=== PATIENT | female | born 1995 | race Caucasian/White ===

== ENCOUNTER 2017-01-14 08:04 | Emergency (ER) | payer OTHER ==
[~2017-01-14] VITALS: Ht 170.2 cm; Wt 152.3 kg
[2017-01-14 08:06] VITALS: BP 146/92; PULSE 88; RESP 16; O2SAT 97
[2017-01-14] MEDS ORDERED: METF500T4 PO (08:09)
--- NOTE | 2017-01-14 08:36 | ED.REPORT ---
HPI-Abd Pain F Under 40 Date of Service Jan 14, 2017 ED Provider: Doc,Ed MD The patient is a 21 year old female with history of ovarian cysts and polycystic ovary syndrome, who presents to the emergency department complaining of "sharp" RLQ abdominal pain that began 1 week ago. The pain has been constant and seems to wax and wane. Her symptoms began to worsen last night while she was at work. She has also experienced "dull" back pain, nausea, and vomiting. She denies fever, chills, diarrhea, constipation, dysuria, vaginal bleeding or vaginal discharge. She denies history of kidney stones. Nursing Notes Stated Complaint: LOWER ABDOMINAL PAIN Chief Complaint: Female Abdominal Pain Nursing Notes Reviewed: Yes Allergies: Coded Allergies: sumatriptan (Verified Allergy, Unknown, 01/14/17) Scheduled Metformin (Metformin) 500 Mg Tablet 500 MG PO BID Scheduled PRN Hydrocodone-Acetaminophen 5-325 mg (Hydrocodone-Acetaminophen 5-325 mg) 1 Each Tablet 1 TABLET PO Q4H PRN PRN For Pain Hydrocodone-Acetaminophen 5-325 mg (Hydrocodone-Acetaminophen 5-325 mg) 1 Each Tablet 1 TABLET PO Q4H PRN PRN For Pain Ibuprofen (Ibuprofen) 800 Mg Tablet 800 MG PO TID PRN PRN For Pain General Time Seen by MD: 08:36 Chief Complaint Abdominal pain Hx Obtained From: Patient Arrived By: Walk-in Sudden in Onset?: No Onset Occurred: 1 week ago Symptom Duration: Since onset Progression since Onset: Gradually worsening Location: : RLQ Quality: Painful, Sharp Severity: Current: Mild Severity: Maximum: Severe Recent Healthcare: No recent doctor visit, No recent hospitalization Similar Sx Previous: Yes Past Medical History Past Medical History Prior mental illness, not currently on medication Panic disorder, depression Ovarian cyst PCOS Past Surgical History Reports: Tonsillectomy Family History Review, not relevant Smoking History Former Smoker Social History Alcohol Use: "Social" Drug Use: Denies drug use Other Social History: , Local resident 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 Physical Exam Initial Vital Signs Vital Signs (First) Date Time Temp Pulse Resp B/P Pulse Ox O2 Delivery O2 Flow Rate FiO2 01/14/17 08:06 36.6 88 16 146/92 97 Room Air Initial VS: Reviewed Head / Eyes: Atraumatic, Normocephalic, PERRL ENT: Mucous membranes moist, Conjunctiva normal, No scleral icterus Neck: Supple, Non-tender, Full range of motion Lymphatic: No lymphadenopathy Extremities: Vascular intact, Neuro intact, No swelling, No tenderness Skin: Warm, Dry, No cyanosis Neurologic: Alert, Oriented, Nonfocal Psychiatric: Mood/affect normal, Behavior normal, Normal thought content General/Constitutional: Awake, Alert, No acute distress, Well appearing Respiratory / Chest: Atraumatic, Breath sounds NL, Breath sounds = bilat, No respiratory distress, No rales, No rhonchi, No wheezing Cardiovascular: Heart rate NL, Regular rhythm, Heart sounds NL, No gallop, No murmurs, No rubs, Peripheral circulation NL Abdomen: Soft, No guarding, No rebound, BS normoactive, No distention, No hernia, No palpable mass Tenderness/Guarding/Rebound: Positive: Tender RLQ... Back: Inspection NL, Non-tender, No midline vertebral tend, No CVA tenderness Female Genitourinary: Steel Plate Printer present, No bleeding, No discharge, No cervical motion tend Mild-moderate right adnexal tenderness. No left adnexal tenderness. Interpretation & Diagnostics Interpretation & Diagnostics: Urine : negative Urine dip: trace leukocytes, negative nitries, negative blood Pelvic US: No torsion. Lab Results Interpretation Result Diagram: 01/14/17 0904 01/14/17 0904 Test 01/14/17 08:30 01/14/17 09:04 Hold Urine Received (Received) White Blood Count 12.7th/mm3 (3.8-10.1) Red Blood Count 4.61mil/mm3 (3.90-5.20) Hemoglobin 13.1g/dL (12.0-15.6) Hematocrit 38.5% (35.0-46.0) Mean Corpuscular Volume 83.5fL (81-100) Mean Corpuscular Hemoglobin 28.4pg (27.0-35.0) Mean Corpuscular Hemoglobin Concent 34.0% (32.0-37.0) Red Cell Distribution Width 13.4% (12.3-15.4) Platelet Count 276bil/L (150-400) Neutrophils (%) (Auto) 64.2% (40-74) Lymphocytes (%) (Auto) 27.7% (14-46) Monocytes (%) (Auto) 5.9% (4-12) Eosinophils (%) (Auto) 1.8% (0-5) Basophils (%) (Auto) 0.2% (0-3) Sodium Level 137mEq/L (134-144) Potassium Level 4.0mEq/L (3.5-5.2) Chloride Level 101mEq/L (97-108) Carbon Dioxide Level 20mmol/L (18-29) Blood Urea Nitrogen 11mg/dL (6-20) Creatinine 0.81mg/dL (0.57-1.00) Estimat Glomerular Filtration Rate 128mL/min (>59) Glucose Level 105mg/dL (60-99) Calcium Level 9.3mg/dL (8.5-10.1) Magnesium Level 1.8mg/dL (1.6-2.6) Total Bilirubin 0.3mg/dL (0.0-1.2) Aspartate Amino Transf (AST/SGOT) 23U/L (0-50) Alanine Aminotransferase (ALT/SGPT) 25U/L (0-32) Alkaline Phosphatase 50U/L (25-150) Total Protein 7.4g/dL (6.4-8.4) Albumin 4.0g/dL (3.4-5.0) Lipase 21U/L (13-60) CT Abd / Pelvis Interpretation IMPRESSION: 1. Normal appendix. No bowel obstruction. Large meniscal to the cecum may represent focal constipation. 2. Enlarging pelvic fluid collections adjacent to the uterus probably represent either paraovarian cysts or ovarian cysts. It is uncertain whether these structures are source for the patient's pain given that the right paraovarian cyst has been present since at least 12/21/14. A pelvic ultrasound may be helpful for better characterization. Dictated by: Tez Perez M.D. on 01/14/2017 at 9:19 Interpretation / Wet Read by: Discussed w radiologist Re-Eval/Medical Decision Med Decision/Clinical Course Med Decision/Clinical Course: 21 -year-old female history of PCO S presenting with right lower quadrant pain 7-10 days worsening last 2 days. Reports this is similar to her PCO S flares. She is tender right lower quadrant and right adnexal. CT abdomen and pelvis shows no appendicitis with multiple right ovarian cyst. Ultrasound showed no evidence of ovarian torsion with good flow to both ovaries. Her white blood cell count is mildly elevated 12,000. Her pain resolved with morphine. Urine was negative for infection. Likely PCO S flare. Pain control. Return precautions given if any new or worsening abdominal pain or any other new or worsening symptoms. Source of Hx: Old records Re-Evaluation/Progress #1: Time of Eval: 11:05 Re-Evaluation/Progress Note: Completed pelvic exam and discussed plan for pelvic ultrasound. Re-Evaluation/Progress #2: Time of Eval: 12:43 Re-Evaluation/Progress Note: Rechecked the patient. Discussed results, diagnosis, and plan for discharge. All questions were addressed. Counseled Regarding: Diagnosis, Lab results, Need for follow-up, When/why to return to ED Discharge & Departure Primary Impression: Ovarian cyst Laterality: bilateral Qualified Code: N83.20 - Unspecified ovarian cysts Additional Impression: Abdominal pain Abdominal location: right lower quadrant Qualified Code: R10.31 - Right lower quadrant pain Disposition: Home Discharge Condition All VS Reviewed: Yes Condition: Stable Patient Instructions: Ovarian Cyst (ED) Additional Instructions: Thank you for entrusting us with your care today. Your workup today included labs, urinalysis, and abdominal CT. Your CT today does show evidence of an ovarian cyst. This may be the cause of your pain today. Your appendix is normal and there is no evidence of a bowel obstruction. Your ultrasound did not show any evidence of ovarian torsion. Use Motrin and Hackberry as needed for your pain. Followup with your regular doctor early next week for re-evaluation. Please return to the emergency department if you develop increased pain, uncontrollable vomiting, fever, or any other new or concerning symptoms. Referrals: Elizabeth Lynch (PCP) Hillaryibmariia Attestation Portions of this note were transcribed by Falguni Nolen. I, Dr. Martinez personally performed the history, physical exam and medical decision-making; I reviewed and confirmed the accuracy of the information in the transcribed note. Signed by: Bharat Fields, 01/14/2017 at 1300. copies to: Elizabeth Lynch Ben M MD Jan 14, 2017 08:36 Callum,Falguni Epperson Jan 14, 2017 08:41
[2017-01-14] MEDS ORDERED: 0.9% Sodium Chloride 1,000 ML IV ONE (08:42)
[2017-01-14] MEDS ORDERED: Ondansetron 2 mg/mL 2 mL Inj IVPUSH PRN (08:45)
[2017-01-14 09:13] LABS: BASOPHILS % (AUTO) 0.2 % (0-3); EOSINOPHILS % (AUTO) 1.8 % (0-5); MONOCYTES % (AUTO) 5.9 % (4-12); Mean Corpuscular Hemoglobin 28.4 pg (27.0-35.0); Mean Corpuscular Volume 83.5 fL (81-100); NEUTROPHILS % (AUTO) 64.2 % (40-74); Platelet Count 276 bil/L (150-400)
[2017-01-14 09:41] LABS: Magnesium 1.8 mg/dL (1.6-2.6)
--- NOTE | 2017-01-14 10:28 | DRSVH ---
PROCEDURE: CT ABDOMEN AND PELVIS WITH CONTRAST ([id number]) INDICATIONS: RLQ pain TECHNIQUE: After the administration of intravenous contrast, 5 mm thick sections acquired from the diaphragm to the symphysis. 5 mm coronal and sagittal reformats were acquired. For radiation dose reduction, the following was used: automated exposure control, adjustment of mA and/or kV according to patient siz e. COMPARISON: [facility], CT, CT ABD PELVIS W CON, 05/17/2015, 15:33. [facility] al, CT, ABD/PELVIS W/CON (PNL), 12/21/2014, 14:23. FINDINGS: Image quality: Excellent. ABDOMEN: Lung bases: Lung bases are clear. Heart size is normal. Solid organs: The liver is normal in size, but demonstrates subtle decreased density when compared to the spleen, which may represent hepatic steatosis. The spleen is normal in size. The adrenals and pancreas are unremarkable. The kidneys are within normal limits. There is no hydronephrosis or alberto l calculus. Peritoneum and bowel: The stomach, duodenum, and remainder of the small bowel loops are nondilated. There is no bowel obstruction. Moderate residual stool is seen within the colon, particularly within the region of the cecum. The appendix is well-visualized and normal in size without surrounding inf lammation. There is no free fluid, loculated fluid collection, or free air. Nodes and vessels: No retroperitoneal or mesenteric adenopathy by size criteria. Aorta and inferior vena cava are normal in size. Bones: Degenerative changes of the thoracolumbar spine are more prominent at the thoracolumbar juncti on. No acute fractures or suspicious osseous lesions are evident. PELVIS: Genitourinary: Bladder wall thickness is normal. The uterus is not enlarged. On the posterior jose in of the uterus within the right adnexal region, positioned between the uterus and the rectum, there is a large fluid collection measuring 5.1 x 6.4 cm (image 79, series 2), previously measuring 5.5 x 3.4 cm. There is a new left paraovarian fluid collection identified measuring 3.2 x 1.9 cm (image 79 , series 2). Other pelvic soft tissues: No inguinal hernias or adenopathy. Small inguinal lymph nodes are noted. No free fluid or loculated fluid collection is evident. Bones: No suspicious bony lesions. No significant degenerative changes of the pelvic joints are mickey dent. IMPRESSION: 1. Normal appendix. No bowel obstruction. Large meniscal to the cecum may represent focal constipa tion. 2. Enlarging pelvic fluid collections adjacent to the uterus probably represent either paraovarian c ysts or ovarian cysts. It is uncertain whether these structures are source for the patient's pain [place] that the right paraovarian cyst has been present since at least 12/21/14. A pelvic ultrasound may be helpful for better characterization. Dictated by: Tez Perez M.D. on 01/14/2017 at 9:19 Approved by: Tez Perez M.D. on 01/14/2017 at 9:26
[2017-01-14] MEDS ORDERED: HYDR-4003 PO ×2 (12:46→13:19)
[2017-01-14] MEDS ORDERED: IBUP800T28 PO (12:46)
[2017-01-14 13:09] VITALS: BP 122/66; PULSE 87; RESP 15; O2SAT 95
--- NOTE | 2017-01-14 13:39 | DRSVH ---
PROCEDURE: US PELVIC SONOGRAM WITH TRANSVAG AND DOPPLER, LIMITED INDICATIONS: RIGHT ADNEXAL TENDERNESS, RULE OUT TORSION, HISTORY OF CYSTS/PCOS. TECHNIQUE: Real-time scanning was performed of the pelvic organs, with image documentation. Additio nal endovaginal scanning was necessary due to incomplete visualization of the adnexal and endometrial structures by transabdominal scanning. COMPARISON: [facility], CT, CT ABD PELVIS W CON, 01/14/2017, 10:01. FINDINGS: (Orthogonal measurements) Uterus size: 8.20 cm, 3.45 cm, 6.06 cm Endometrium thickness: 6 mm Right ovary size: 6.83 cm, 5.00 cm, 6.47 cm Left ovary size: 4.38 cm, 2.74 cm, 3.60 cm Transabdominal scanning: Limited scanning through the kidneys shows no hydronephrosis. No pathologi c free abdominal or pelvic fluid. Endovaginal scanning: Uterus: Uterus is normal in size and appearance. Endometrium is within normal physiologic limits. Ovaries: Large simple biadnexal likely ovarian cyst present measuring 5.9 x 4.6 x 6.5 cm on the right and 4.1 x 2.9 x 2.3 cm on the left. Doppler assessment demonstrates bilateral peripheral flow. IMPRESSION: 1. Bilateral, presumed large simple ovarian cysts. Given the size, recommend gynecologic consultatio n. Dictated by: Javier HAMILTON Interpreted: Minnie Duke MD on 01/14/2017 at 13:03 Transcribed by: JILL on 01/14/2017 at 16:39 Approved by: Minnie Duke MD, PhD on 01/14/2017 at 16:27
[2017-03-03] MEDS ORDERED: MULT-1018 PO (15:36)
[2017-03-03] MEDS ORDERED: OCP (15:36)
[2017-03-03] MEDS ORDERED: HYDR-4003 PO (15:36)
[2017-03-03] MEDS ORDERED: METF500T4 PO (15:36)
[2017-03-03] MEDS ORDERED: TRAM50TA2 PO (15:36)
== END 2017-01-14 12:46 | disposition home or self-care (01) ==
LOC: SED 08:04
DX: N83.201 Unspecified ovarian cyst, right side (principal); N83.202 Unspecified ovarian cyst, left side; Z87.42 Personal history of other diseases of the female genital tract; Z87.891 Personal history of nicotine dependence; Z79.84 Long term (current) use of oral hypoglycemic drugs; Z88.8 Allergy status to other drugs, medicaments and biological substances
CPT/HCPCS: 36415; 74177; 76830; 76856; 80053; 81025; 83690; 83735; 85025; 93976; 96361; 96374; 96375; 99285; J2270; J2405; J7030; Q9967

== ENCOUNTER 2017-01-28 07:52 | Emergency (ER) | payer OTHER ==
[~2017-01-28] VITALS: Ht 167.6 cm; Wt 152.3 kg
[~2017-01-28 07:52] MED LIST: HYDR-4003 PO; IBUP800T28 PO; METF500T4 PO
[2017-01-28 07:58] VITALS: BP 137/104; PULSE 87; RESP 10; O2SAT 96
[2017-01-28] MEDS ORDERED: 0.9% Sodium Chloride 1,000 ML IV ONE (08:14)
[2017-01-28 08:41] LABS: BASOPHILS % (AUTO) 0.6 % (0-3); EOSINOPHILS % (AUTO) 2.5 % (0-5); Mean Corpuscular Hemoglobin 28.1 pg (27.0-35.0); Mean Corpuscular Volume 83.8 fL (81-100); NEUTROPHILS % (AUTO) 52.1 % (40-74); Platelet Count 311 bil/L (150-400)
[2017-01-28] MEDS: Ondansetron 2 mg/mL 2 mL Inj IVPUSH PRN ×2 (08:44→10:10)
[2017-01-28 09:11] LABS: COLOR,URINE YELLOW (YELLOW); OCCULT BLOOD,URINE NEGATIVE (NEGATIVE); PH,URINE 5.5 (5.0-8.0); UROBILINOGEN,URINE NORMAL (NORMAL)
[2017-01-28 09:12] LABS: APPEARANCE,URINE HAZY (CLEAR,HAZY)
[2017-01-28 09:15] LABS: Magnesium 2.1 mg/dL (1.6-2.6)
--- NOTE | 2017-01-28 09:59 | ED.REPORT ---
HPI-Abd Pain F Under 40 Date of Service Jan 28, 2017 ED Provider: Melvin Martinez MD Patient is a 22 year old female with a history of ovarian cysts and PCOS who presents to the ED complaining of three weeks of intermittent abdominal pain that worsened markedly at 0600 this morning. She describes the pain as sharp and localizes pain in the RLQ. Patient denies fever and vomiting. She was seen here in the ER recently for similar and followed up with PCP who referred her to an OBGYN, who instructed to return to the ER if symptoms became suddenly worse. Nursing Notes Stated Complaint: ABDOMINAL PAIN Chief Complaint: Female Abdominal Pain Nursing Notes Reviewed: Yes Allergies: Coded Allergies: sumatriptan (Verified Allergy, Unknown, 01/14/17) Scheduled Metformin (Metformin) 500 Mg Tablet 500 MG PO BID Scheduled PRN Hydrocodone-Acetaminophen 5-325 mg (Hydrocodone-Acetaminophen 5-325 mg) 1 Each Tablet 1 TABLET PO Q4H PRN PRN For Pain Hydrocodone-Acetaminophen 5-325 mg (Hydrocodone-Acetaminophen 5-325 mg) 1 Each Tablet 1 TABLET PO Q4H PRN PRN For Pain Ibuprofen (Ibuprofen) 800 Mg Tablet 800 MG PO TID PRN PRN For Pain General Time Seen by MD: 08:13 Chief Complaint Abdominal pain Hx Obtained From: Patient Arrived By: Walk-in Sudden in Onset?: No Onset Occurred: More than a week ago... 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 Physical Exam Initial Vital Signs Vital Signs (First) Date Time Temp Pulse Resp B/P Pulse Ox O2 Delivery O2 Flow Rate FiO2 01/28/17 07:58 36.6 87 10 137/104 96 Room Air Initial VS: Reviewed General/Constitutional: Awake, Alert Respiratory / Chest: Atraumatic, Breath sounds NL, Breath sounds = bilat, No respiratory distress Cardiovascular: Heart rate NL, Regular rhythm, Heart sounds NL, No murmurs Tenderness/Guarding/Rebound: Positive: Tender RLQ... (Mild) Back: Atraumatic Head / Eyes: Normocephalic, PERRL, EOMI ENT: Airway patent, Mucous membranes moist Skin: Atraumatic, Color NL, No rash, Warm, Dry Neurologic: Oriented X3, Speech NL, No motor deficits, No sensory deficits Neck: Supple Psychiatric: Affect NL, Mood NL Interpretation & Diagnostics PELVIC US Initial read by welding technician: No sign of ovarian torsion or appendicitis. Ovarian cysts. Lab Results Interpretation Result Diagram: 01/28/17 0837 01/28/17 0837 Test 01/28/17 08:37 White Blood Count 10.8th/mm3 (3.8-10.1) Red Blood Count 4.99mil/mm3 (3.90-5.20) Hemoglobin 14.0g/dL (12.0-15.6) Hematocrit 41.8% (35.0-46.0) Mean Corpuscular Volume 83.8fL (81-100) Mean Corpuscular Hemoglobin 28.1pg (27.0-35.0) Mean Corpuscular Hemoglobin Concent 33.5% (32.0-37.0) Red Cell Distribution Width 13.5% (12.3-15.4) Platelet Count 311bil/L (150-400) Neutrophils (%) (Auto) 52.1% (40-74) Lymphocytes (%) (Auto) 35.6% (14-46) Monocytes (%) (Auto) 9.0% (4-12) Eosinophils (%) (Auto) 2.5% (0-5) Basophils (%) (Auto) 0.6% (0-3) Urine Color Yellow (YELLOW) Urine Appearance Hazy (CLEAR,HAZY) Urine pH 5.5 (5.0-8.0) Urine Specific [place] 1.025 (1.003-1.035) Urine Protein Negativemg/dL (NEG,TRACE) Urine Glucose (UA) Negativemg/dL (NEGATIVE) Urine Ketones Negativemg/dL (NEGATIVE) Urine Occult Blood Negative (NEGATIVE) Urine Nitrite Negative (NEGATIVE) Urine Bilirubin Negative (NEGATIVE) Urine Urobilinogen Normalmg/dL (NORMAL) Urine Leukocyte Esterase Negative (NEGATIVE) Urine RBC 0-2/hpf (0-2) Urine WBC 0-5/hpf (0-5) Urine Epithelial Cells Moderate/hpf (NONE-MOD) Urine Crystals None seen (NONE SEEN) Urine Bacteria Few/hpf (NONE-FEW) Urine Hyaline Casts None/lpf (NONE) Urine Granular Casts None seen (NONE SEEN) Urine Waxy Casts None seen (NONE SEEN) Urine Red Blood Cell Casts None seen (NONE SEEN) Urine White Blood Cell Casts None seen (NONE SEEN) Urine Mucus None seen (None Seen) Urine Trichomonas None seen (NONE SEEN) Urine Yeast None (NONE SEEN) Urinalysis Comment None Urine Culture Reflexed Not indicated Sodium Level 138mEq/L (134-144) Potassium Level 4.3mEq/L (3.5-5.2) Chloride Level 102mEq/L (97-108) Carbon Dioxide Level 21mmol/L (18-29) Blood Urea Nitrogen 23mg/dL (6-20) Creatinine 0.78mg/dL (0.57-1.00) Estimat Glomerular Filtration Rate 132mL/min (>59) Glucose Level 103mg/dL (60-99) Calcium Level 10.0mg/dL (8.5-10.1) Magnesium Level 2.1mg/dL (1.6-2.6) Total Bilirubin 0.2mg/dL (0.0-1.2) Aspartate Amino Transf (AST/SGOT) 25U/L (0-50) Alanine Aminotransferase (ALT/SGPT) 25U/L (0-32) Alkaline Phosphatase 52U/L (25-150) Total Protein 7.9g/dL (6.4-8.4) Albumin 4.4g/dL (3.4-5.0) Lipase 22U/L (13-60) Re-Eval/Medical Decision Med Decision/Clinical Course Med Decision/Clinical Course: 22-year-old female history of morbid obesity, PCO S presenting with right lower quadrant pain sudden onset this morning. She has had constant right lower quadrant pain for the past 3 weeks. She was told to come in immediately if she develops any worsening of the pain. She reports this happened this morning. No fevers, nausea vomiting, other associated symptoms pain just mild right lower quadrant tenderness. She reports this feels like her PCOS flares. Pelvic ultrasound showed right adnexal cyst with good flow no evidence of torsion. No evidence of appendicitis and appendix poorly visualized. Discussed with patient she does not want any CT scan to rule out appendicitis. She will return if her pain worsens. Her pain is now significantly improved. Source of Hx: Old records Re-Evaluation/Progress : Time of Eval: 11:41 Patient Status: Condition improved Re-Evaluation/Progress Note: Rechecked patient. Discussed ultrasound results, diagnosis, plan for treatment and discharge. The patient understands and agrees to the plan for discharge. All questions were addressed. Counseled Regarding: Diagnosis, Lab results, Need for follow-up, When/why to return to ED Discharge & Departure Primary Impression: Polycystic ovarian syndrome Additional Impression: Right lower quadrant abdominal pain Disposition: Home Discharge Condition All VS Reviewed: Yes Condition: Stable Patient Instructions: Polycystic Ovarian Syndrome (ED) Additional Instructions: Your ultrasound did not reveal any torsion or signs of appendicitis. Continue taking Tramadol as prescribed for your pain. You opted for no CT scan to rule out appendicitis. Please return to the emergency department if you develop any new or worsening symptoms including worsening abdominal pain, fevers, nausea/ vomiting, other new/worsening symptoms. Referrals: Eli Bowles (PCP) Bharat Attestation Portions of this note were transcribed by Magdalene Duran and Ernst Jean. I, Dr. Martinez personally performed the history, physical exam and medical decision-making; I reviewed and confirmed the accuracy of the information in the transcribed note. Signed by: Bharat Lemon, and 12:00 copies to: Eli Bowles Ben M MD Jan 28, 2017 09:59 Adri Duran Jan 28, 2017 10:29 ERNST JEAN Jan 28, 2017 11:07
[2017-01-28 12:07] VITALS: BP 132/61; PULSE 85; RESP 15
--- NOTE | 2017-01-28 13:29 | DRSVH ---
PROCEDURE: US PELVIC SONOGRAM + TRANSVAGINAL SONOGRAM INDICATIONS: RLQ pain r/o torsion and appendicitis TECHNIQUE: Real-time scanning was performed of the pelvic organs, with image documentation. Additional endovagi nal scanning was necessary due to incomplete visualization of the adnexal and endometrial structures by transabdominal scanning. COMPARISON: [facility], CT, CT [facility] CON[facility]DOP LTD, 01/14/2017, 11:49. FINDINGS: (orthogonal measurements) Uterus size: 7.28 cm, 4.13 cm, 3.30 cm Endometrium thickness: 4.60 mm Right ovary size: 2.67 cm, 4.60 cm Left ovary size: 4.76 cm, 6.03 cm Transabdominal scanning: Limited scanning through the kidneys shows no hydronephrosis. No pathologi c free abdominal or pelvic fluid. Endovaginal scanning: Uterus: Uterus is normal in size and appearance. Endometrium is within normal physiologic limits. Ovaries: Simple cysts involve the ovaries bilaterally measuring 3.3 x 1.9 x 2.6 cm on the right and 5 .3 x 4.0 x 2.3 cm on the left. Doppler assessment of the ovaries demonstrates normal arterial and ve nous flow bilaterally. Trace free fluid adjacent to the left ovary. The appendix is not visualized. No secondary sonographic signs to indicate appendicitis. IMPRESSION: 1. Bilateral simple ovarian cysts, each of which have decreased in size from prior examination. Cont inued sonographic surveillance to resolution recommended. 2. The appendix is not visualized and cannot be evaluated. If indicated CT could be performed. Dictated by: Javier Osuna [facility] Interpreted: Minnie Duke MD on 01/28/2017 at 13:27 Transcribed by: JEAN CLAUDE on 01/28/2017 at 13:29 Approved by: Minnie Duke MD, PhD on 01/28/2017 at 16:43
[2017-03-03] MEDS ORDERED: METF500T4 PO (15:36)
[2017-03-03] MEDS ORDERED: HYDR-4003 PO (15:36)
[2017-03-03] MEDS ORDERED: MULT-1018 PO (15:36)
[2017-03-03] MEDS ORDERED: OCP (15:36)
[2017-03-03] MEDS ORDERED: TRAM50TA2 PO (15:36)
== END 2017-01-28 11:49 | disposition home or self-care (01) ==
LOC: SED 08:14
DX: E28.2 Polycystic ovarian syndrome (principal); R10.31 Right lower quadrant pain; Z79.84 Long term (current) use of oral hypoglycemic drugs; Z87.891 Personal history of nicotine dependence; Z88.8 Allergy status to other drugs, medicaments and biological substances
CPT/HCPCS: 76830; 76856; 80053; 81000; 81025; 83690; 83735; 85025; 96361; 96374; 96375; 96376; 99285; J1885; J2270; J2405; J7030

== ENCOUNTER 2017-02-08 19:27 | Emergency (ER) | payer OTHER ==
[~2017-02-08] VITALS: Ht 172.7 cm; Wt 152.3 kg
[2017-02-08 19:33] VITALS: BP 146/90; PULSE 114; RESP 28; O2SAT 97
[2017-02-08 19:59] LABS: BASOPHILS % (AUTO) 0.4 % (0-3); EOSINOPHILS % (AUTO) 1.8 % (0-5); MONOCYTES % (AUTO) 7.9 % (4-12); Mean Corpuscular Hemoglobin 28.1 pg (27.0-35.0); Mean Corpuscular Volume 83.1 fL (81-100); NEUTROPHILS % (AUTO) 55.7 % (40-74); Platelet Count 330 bil/L (150-400)
[2017-02-08 20:20] LABS: Magnesium 1.8 mg/dL (1.6-2.6)
--- NOTE | 2017-02-08 21:22 | ED.REPORT ---
HPI- Female Date of Service Feb 08, 2017 ED Provider: Lesa Lowry MD 22 y/o female with a hx of PCOS and known right ovarian cyst presents to the ED complaining of sharp RLQ abdominal pain, onset 45 mins ago. The pt reports her pain was 10/10 in severity earlier today but is currently 8/10. She also reports nausea but denies weakness, dizziness, SOB, vomiting, diarrhea and dysuria. She saw he COSTUMED CHARACTER today who is trying to set up a surgery for her, as she has a known ovarian cyst measuring 6cm (down from 8cm when measured in December ) Nursing Notes Stated Complaint: SEVERE ABDOMINAL PAIN Chief Complaint: Female Abdominal Pain Nursing Notes Reviewed: Yes Allergies: Coded Allergies: sumatriptan (Verified Allergy, Unknown, 02/08/17) Scheduled Metformin (Metformin) 500 Mg Tablet 500 MG PO BID Scheduled PRN Hydrocodone-Acetaminophen 5-325 mg (Hydrocodone-Acetaminophen 5-325 mg) 1 Each Tablet 1 TABLET PO Q4H PRN PRN For Pain Hydrocodone-Acetaminophen 5-325 mg (Hydrocodone-Acetaminophen 5-325 mg) 1 Each Tablet 1 TABLET PO Q4H PRN PRN For Pain Hydrocodone-Acetaminophen 5-325 mg (Hydrocodone-Acetaminophen 5-325 mg) 1 Each Tablet 1 TABLET PO Q4H PRN PRN For Pain Ibuprofen (Ibuprofen) 800 Mg Tablet 800 MG PO TID PRN PRN For Pain General Time Seen by MD: 21:21 Chief Complaint Abdominal pain... Hx Obtained From: Patient Arrived By: Walk-in Sudden in Onset?: Yes Onset Occurred: 46 - 59 minutes ago Symptom Duration: Since onset Location: : Abdomen lower Quality: Painful Radiation: Does not radiate Severity: Current: Moderate Severity: Maximum: Moderate Recent Healthcare: Recent doctor visit Similar Sx Previous: Yes Past Medical History Past Medical History Prior mental illness, not currently on medication Panic disorder, depression Ovarian cyst PCOS Past Surgical History Reports: Tonsillectomy Family History Review, not relevant Smoking History Former Smoker Social History Alcohol Use: "Social" Drug Use: Denies drug use Other Social History: , Local 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 Respiratory: Denies: Shortness of breath Physical Exam Initial Vital Signs Vital Signs (First) Date Time Temp Pulse Resp B/P Pulse Ox O2 Delivery O2 Flow Rate FiO2 02/08/17 19:33 36.3 114 28 146/90 97 Room Air Initial VS: Reviewed, Vital signs abnormal Head / Eyes: Atraumatic, Normocephalic, PERRL ENT: Mucous membranes moist, Conjunctiva normal, No scleral icterus Neck: Supple, Non-tender, Full range of motion Respiratory: Breath sounds normal, Clear to auscultation, No respiratory distress Extremities: Vascular intact, Neuro intact, No swelling, No tenderness Skin: Warm, Dry, No cyanosis Neurologic: Alert, Oriented, Nonfocal Psychiatric: Mood/affect normal, Behavior normal, Normal thought content Female Genitourinary: Exam deferred General/Constitutional: Awake, Alert, Cooperative Cardiovascular: Regular rhythm, Heart sounds NL Heart Rate / Rhythm: Positive: Tachycardia Abdomen: Atraumatic, Soft General lower abdominal pain, worse at right lower quadrant. Interpretation & Diagnostics Lab Results Interpretation Result Diagram: 02/08/17195302/08/171953 Test 02/08/17 19:54 02/08/17 21:20 White Blood Count 13.7th/mm3 (3.8-10.1) Red Blood Count 4.91mil/mm3 (3.90-5.20) Hemoglobin 13.8g/dL (12.0-15.6) Hematocrit 40.8% (35.0-46.0) Mean Corpuscular Volume 83.1fL (81-100) Mean Corpuscular Hemoglobin 28.1pg (27.0-35.0) Mean Corpuscular Hemoglobin Concent 33.8% (32.0-37.0) Red Cell Distribution Width 13.3% (12.3-15.4) Platelet Count 330bil/L (150-400) Neutrophils (%) (Auto) 55.7% (40-74) Lymphocytes (%) (Auto) 34.1% (14-46) Monocytes (%) (Auto) 7.9% (4-12) Eosinophils (%) (Auto) 1.8% (0-5) Basophils (%) (Auto) 0.4% (0-3) Sodium Level 137mEq/L (134-144) Potassium Level 3.6mEq/L (3.5-5.2) Chloride Level 101mEq/L (97-108) Carbon Dioxide Level 19mmol/L (18-29) Blood Urea Nitrogen 14mg/dL (6-20) Creatinine 0.78mg/dL (0.57-1.00) Estimat Glomerular Filtration Rate 132mL/min (>59) Glucose Level 137mg/dL (60-99) Calcium Level 9.9mg/dL (8.5-10.1) Magnesium Level 1.8mg/dL (1.6-2.6) Total Bilirubin 0.2mg/dL (0.0-1.2) Aspartate Amino Transf (AST/SGOT) 26U/L (0-50) Alanine Aminotransferase (ALT/SGPT) 29U/L (0-32) Alkaline Phosphatase 56U/L (25-150) Total Protein 7.4g/dL (6.4-8.4) Albumin 4.3g/dL (3.4-5.0) Lipase 28U/L (13-60) Hold Rausch Top Tube Received (Received) Urine Color Yellow (YELLOW) Urine Appearance Clear (CLEAR,HAZY) Urine pH 6.5 (5.0-8.0) Urine Specific [place] 1.020 (1.003-1.035) Urine Protein Negativemg/dL (NEG,TRACE) Urine Glucose (UA) Negativemg/dL (NEGATIVE) Urine Ketones Negativemg/dL (NEGATIVE) Urine Occult Blood Negative (NEGATIVE) Urine Nitrite Negative (NEGATIVE) Urine Bilirubin Negative (NEGATIVE) Urine Urobilinogen 1.0mg/dL (NORMAL) Urine Leukocyte Esterase Negative (NEGATIVE) Urine RBC 0-2/hpf (0-2) Urine WBC 0-5/hpf (0-5) Urine Epithelial Cells Few/hpf (NONE-MOD) Urine Crystals None seen (NONE SEEN) Urine Bacteria Few/hpf (NONE-FEW) Urine Hyaline Casts None/lpf (NONE) Urine Granular Casts None seen (NONE SEEN) Urine Waxy Casts None seen (NONE SEEN) Urine Red Blood Cell Casts None seen (NONE SEEN) Urine White Blood Cell Casts None seen (NONE SEEN) Urine Mucus None seen (None Seen) Urine Trichomonas None seen (NONE SEEN) Urine Yeast None (NONE SEEN) Urinalysis Comment None Urine Culture Reflexed Not indicated Re-Eval/Medical Decision Med Decision/Clinical Course The patient presents with a sudden increase in pain this known right ovarian cyst, proximally 6 cm. The patient is not visibly uncomfortable and her pain significantly improved while here. It is likely that her cyst ruptured, this does not seem consistent with ovarian torsion. On repeat exam the patient had continued pain to the right lower quadrant suprapubic area but her belly was soft. Additional differential diagnoses considered were appendicitis and ectopic . Source of Hx: Old records Re-Evaluation/Progress : Time of Eval: 22:32 Re-Evaluation/Progress Note: Patient understands and agrees with the plan to be discharged home. Discharge instructions and follow-up discussed. All questions were addressed. Return to the ED warnings given. Counseled Regarding: Diagnosis, Lab results, Need for follow-up, When/why to return to ED Discharge & Departure Impression: Primary Impression: Ovarian cyst Laterality: right Qualified Code: N83.201 - Unspecified ovarian cyst, right side Disposition: Home Discharge Condition All VS Reviewed: Yes Condition: Stable Patient Instructions: Ovarian Cyst (ED) Additional Instructions: Your pain is likely related to ruptured ovarian cyst. There is no torsion. A repeat ultrasound is required so make an appointment with your center sales and service associate. Return to the emergency department in cause of increased pain, fever or any new or worsening symptoms. Referrals: Eli Bowles (PCP) Scribe Attestation Portions of this note were transcribed by Andrea Jefferson and Pat Garner I, personally performed the history, physical exam and medical decision-making;I reviewed and confirmed the accuracy of the information in the transcribed note. Signed by Andrea Jefferson and Bharat Nur. 02/09/17 0238 copies to: Eli Bowles Jena M MD Feb 08, 2017 21:22 Andrea Jefferson Feb 08, 2017 21:28 Pat Garner Feb 09, 2017 02:38
[2017-02-08] MEDS ORDERED: HYDROmorphone 0.5 mg/0.5 mL iSecure Syringe IVPUSH PRN (21:30)
[2017-02-08] MEDS ORDERED: 0.9% Sodium Chloride 1,000 ML IV ONE (21:30)
[2017-02-08 21:42] LABS: APPEARANCE,URINE CLEAR (CLEAR,HAZY); COLOR,URINE YELLOW (YELLOW); OCCULT BLOOD,URINE NEGATIVE (NEGATIVE); PH,URINE 6.5 (5.0-8.0)
[2017-02-08 22:21] VITALS: BP 140/95; PULSE 78; RESP 20; O2SAT 99
[2017-02-08] MEDS ORDERED: HYDR-4003 PO (22:55)
[2017-02-08 23:06] VITALS: BP 133/92; PULSE 71; RESP 16; O2SAT 99
[2017-03-03] MEDS ORDERED: MULT-1018 PO (15:36)
[2017-03-03] MEDS ORDERED: METF500T4 PO (15:36)
[2017-03-03] MEDS ORDERED: HYDR-4003 PO (15:36)
[2017-03-03] MEDS ORDERED: TRAM50TA2 PO (15:36)
[2017-03-03] MEDS ORDERED: OCP (15:36)
== END 2017-02-08 23:07 | disposition home or self-care (01) ==
LOC: SED 19:27
DX: N83.201 Unspecified ovarian cyst, right side (principal); Z87.891 Personal history of nicotine dependence; Z79.84 Long term (current) use of oral hypoglycemic drugs; Z88.8 Allergy status to other drugs, medicaments and biological substances
CPT/HCPCS: 36415; 80053; 81000; 81025; 83690; 83735; 85025; 96361; 96374; 99284; J1170; J7030

== ENCOUNTER 2017-03-09 08:53 | Day surgery (SDC) | payer OTHER ==
[~2017-03-09] VITALS: Ht 167.6 cm; Wt 151.4 kg
[2017-03-09] VITALS (9 sets, daily range): BP systolic 114–137; BP diastolic 61–85; PULSE 90–107; RESP 13–18; O2SAT 93–100
[~2017-03-09 08:53] MED LIST changes: -IBUP800T28 PO; +LORazepam 1 mg Tablet PO PRN; +MULT-1018 PO; +OCP; +TRAM50TA2 PO
[2017-03-09] MEDS ORDERED: Glycopyrrolate 0.2 MG/ML 1mL Inj ONE (08:54)
[2017-03-09] MEDS ORDERED: Propofol 10,000 mCg/mL 20 mL Inj ONE (08:54)
[2017-03-09] MEDS ORDERED: Neostigmine 1 mg/mL 10 mL Inj ONE (08:54)
[2017-03-09] MEDS ORDERED: Ondansetron 2 mg/mL 2 mL Inj ONE (08:54)
[2017-03-09] MEDS ORDERED: fentaNYL-PF 50 mCg/mL 2 mL Inj ONE (08:54)
[2017-03-09] MEDS ORDERED: Succinylcholine Chloride 20 mg/mL 5 mL Inj ONE (08:54)
[2017-03-09] MEDS ORDERED: Dexamethasone 4 mg/mL Inj ONE (08:54)
[2017-03-09] MEDS ORDERED: Remifentanil 1 mg/3 mL Inj ONE (08:54)
[2017-03-09] MEDS ORDERED: Rocuronium 10 mg/mL 5 mL Inj ONE (08:54)
[2017-03-09] MEDS ORDERED: EPHEDrine/NS 5 mg/mL 5 mL Syringe ONE (08:54)
[2017-03-09] MEDS: Lactated Ringer's 1,000 ML IV SCH ×2 (08:56→11:45)
[2017-03-09] MEDS ORDERED: LEVO1TAB8 PO (09:10)
--- NOTE | 2017-03-09 10:03 | PCM.HPANE ---
Patient Data Surgeon Admitting Provider: Attending Provider:Lucian Barrera MD Primary Care Physician:Eli Bowles Other Provider:Sanjay Ndiaye Anesthesia Reason for Visit Pelvic Pain Ht/WT & BMI Height (Feet): 5 Height (Inches): 6 Weight (Kilograms): 151.95 Body Mass Index 53.00 Allergies Coded Allergies: sumatriptan (Verified Allergy, Unknown, 02/08/17) Past Anesthesia History Anesthesia History: Denies:: Anesthesia Reactions Diabetes History Hx Diabetes?: No (on metformin for PCOS) Medications Hypertension Medication: No Home Meds Incl Beta Zakiya: No Reported Medications Levonorgestrel/Ethinyl Estradiol (Aviane)1 Each Tablet1 Tablet PO DAILY #1 PACK 03/09/17 Tramadol 50 Mg [id number] Mg PO Q3H PRN For Pain Ref 0 03/03/17 Multivitamin (Multi Vitamin Daily)1 Each Tablet1 Each PO DAILY 30 Days Ref 0 03/03/17 Hydrocodone-Acetaminophen 5-325 mg 1 Each Tablet1 Tablet PO Q4H PRN For Pain Ref 0 03/03/17 Metformin 500 Mg [id number] Mg PO BID Ref 0 03/03/17 Discontinued Reported Medications [Ocp] No Conflict Check1 Tab DAILY 03/03/17 Metformin 500 Mg [id number] Mg PO BID 01/14/17 Discontinued Scripts Hydrocodone-Acetaminophen 5-325 mg 1 Each Tablet1 Tablet PO Q4H PRN For Pain # 10 TABLET Prov:Lesa Lowry MD 02/08/17 Hydrocodone-Acetaminophen 5-325 mg 1 Each Tablet1 Tablet PO Q4H PRN For Pain # 10 TABLET Prov:Melvin Martinez MD 01/14/17 Hydrocodone-Acetaminophen 5-325 mg 1 Each Tablet1 Tablet PO Q4H PRN For Pain # 10 TABLET Prov:Melvin Martinez MD 01/14/17 Ibuprofen 800 Mg [id number] Mg PO TID PRN For Pain #30 TABLET Prov:Melvin Martinez MD 01/14/17 History History of ENT Problems?: No HEENT History: Denies:: Abnormal Airway Cataracts Difficult Intubation Dysphagia Glaucoma Hearing Problem Sinus Problem TMJ Denture Type: None Teeth Condition: Within Normal Limits Hx of Heart Problems?: No Cardiovascular History: Denies:: AICD Abdominal Aortic Aneurism Atrial Fibrillation Cardiac Surgery Chest Pain Congestive Heart Failure Coronary Artery Disease Edema Heart Murmur Hypertension Irregular Heartbeat Pacemaker Peripheral Vascular Rheumatic Fever Thrombophlebitis Valvular Heart Disease Hx of Respiratory Problem?: No Respiratory History: Denies:: Asthma COPD Chest Surgery Cough Dyspnea Emphysema Hemoptysis Oxygen Administration Pneumonia Pulmonary Embolism Tuberculosis Use of C-PAP Machine Use of Inhalers / NEBS Hx Neurologic Problems?: No Hx of GI Problems?: No Hx of Problems?: No Female Hx: Denies:: Currently Problems with Breasts? Hx Musculoskeletal Problems?: Yes Musculoskeletal History: Positive for:: Back Injury (hx of back pain) Hx of Psycho/Social Problems?: Yes Psycho Social History: Positive for:: Anxiety (panic attacks) Hx Depression Hx Surgeries?: Yes (tonsils) Hx Any Other Health Problems?: Yes Other History: Denies:: Cancer Hx Diabetes: No (on metformin for PCOS) Hx Alcohol Use: NoHx Substance Use: No Smoking Status: Former Smoker Have You Smoked inLast 12 mo: No Stop/Bang P-Blood Pressure: treated: No B- Body Mass Index > 35 kg/m2: Yes A- Age over 50: No N- Neck Large Circumference: Yes HARI Risk Assessment: High Risk, =/>3 Yes Risk Assessment Category Category 1A: Patient has history of documented sleep apnea, and HAS NOT received any narcotic, sedative or anesthesia administration during this stay. Category 1B: Patient has history of documented sleep apnea, and HAS received any narcotic , sedative or anesthesia administration during this stay Category 2: Patient has SUSPECTED Obstructive Sleep Apnea, and HAS received any narcotic , sedative or anesthesia administration during this stay. Category 3: Patient has SUSPECTED Obstructive Sleep Apnea and HAS NOT received narcotic, sedative or anesthesia administration during this stay. Category 4: Outpatient in Procedural Areas with known sleep apnea or who screen positive for High Risk via the STOP/BANG questionnaire. Exam Exam General Appearance: Alert, Oriented X3, Cooperative, No Acute Distress HEENT/AIRWAY: MP 2 Lungs: Clear to Auscultation, Normal Air Movement Heart: Exam Unremarkable, Regular Rate/Rhythm, No Murmurs/Rubs/Gallops Meds/Labs/Diagnostics Admission Meds Current Medications Lactated Ringer's (Lr) 1,000 ml @ 120 mls/hr Q8H20M IV Last administered on t 08:56; Start 03/09/17 at 05:00; Stop 03/09/17 at 13:19 Plan Impression Patient chart reviewed, patient interviewed and anesthestic plan with risks, benefits, and alternatives discussed, and informed consent obtained. NPO per Anesth. Guidelines: Yes ASA Physical Status: ASA3 Severe Disease Anesthetic Plan: GA Bene/Risks/Altern/Consents: Yes HP Complete Prior to Induction: Yes Bishop Brown MD March 09, 2017 09:37
[2017-03-09] MEDS ORDERED: Lactated Ringer's 500 ML IV PRN (11:46)
[2017-03-09] MEDS ORDERED: Lactated Ringer's 1,000 ML IV SCH (11:46)
[2017-03-09] MEDS ORDERED: Labetalol 5 mg/mL 4 mL Inj IV PRN (11:50)
[2017-03-09] MEDS ORDERED: Atropine 0.4 mg/mL Inj IVPUSH PRN (11:50)
[2017-03-09] MEDS ORDERED: MetoCLOpramide 5 mg/mL 2 mL Inj IVPUSH PRN (11:50)
[2017-03-09] MEDS ORDERED: HYDROmorphone 1 mg/mL Inj IVPUSH PRN ×2 (11:50→14:00)
[2017-03-09] MEDS ORDERED: Phenylephrine 10,000 mCg/mL Inj IVPUSH PRN (11:50)
[2017-03-09] MEDS ORDERED: Ondansetron 2 mg/mL 2 mL Inj IVPUSH PRN ×2 (11:50→14:00)
[2017-03-09] MEDS ORDERED: EPHEDrine Sulfate 50 mg/mL Inj IVPUSH PRN (11:50)
[2017-03-09] MEDS ORDERED: Bupivacaine-MPF 0.25%/EPI 30 mL Inj INFILTRATE ONE (12:36)
[2017-03-09] MEDS ORDERED: Lactated Ringer's 1,000 ML IV ONE (13:09)
[2017-03-09] MEDS: fentaNYL-PF 50 mCg/mL 2 mL Inj IVPUSH PRN ×2 (13:54→14:03)
[2017-03-09] MEDS ORDERED: diphenhydrAMINE 25 mg Capsule PO PRN (14:00)
--- NOTE | 2017-03-09 14:01 | PCM.ANEP1 ---
Post Anesthesia PACU Phase 1 Assessment Vital Signs Vital Signs Date Time Temp Pulse Resp B/P Pulse Ox O2 Delivery O2 Flow Rate FiO2 03/09/17 13:55 106 14 127/76 95 Room Air 03/09/17 13:46 36.3 105 17 126/65 99 Simple Mask 10 03/09/17 09:32 36.1 92 18 135/81 97 Room Air Anesthetic Administered: GA Level of Alertness: Awake, talking PEARSON's with Equal Strength: Yes Pain: No Nausea or Vomiting: No CV Function and Hydration: Yes Airway Device: Endotrachial Tube Oxygen Delivery: Simple Mask Lungs: Clear to Auscultation, Normal Air Movement PACU Phase 2 Assessment Complications: No Follow up Care: N/A Patient Instructions Provided: N/A Bishop Brown MD March 09, 2017 14:01
--- NOTE | 2017-03-09 14:03 | PCM.DIGYN ---
Surgical Discharge Instruction Dates of Hospitalization Date of Hospital Admission 03/09/2017 Providers Admitting Physician: Primary Care Physician: Eli Bowles Attending Physician: Lucian Barrera MD Diagnosis at Time of Discharge Diagnosis at time of discharge Right Ovarian/Paraovarian cyst Problems: Diet Discharge Diet: No restrictions Activity Discharge Activity-General: Try not to overdue, Be up and about, Balance rest and activity, No lifting >10 pounds for 4-6 weeks Dressing and Incisional Care Hygiene: May shower, Wash incision with soap & water Follow Up Plan Follow-up appointment: Weeks (2) Call your provider for: Fever, Shortness of breath, Wound redness, Increasing pain Additional Information You may expect some vaginal bleeding after surgery today. This should stop over the next 24 to 48 hours. Lucian Barrera MD March 09, 2017 14:03
[2017-03-09] MEDS ORDERED: Albuterol 2.5 mg/3 mL Inhalation Solution NEB ONE (14:05)
[2017-03-09] MEDS: HYDROcodone-APAP 5-325 mg Tablet PO PRN ×2 (14:42→15:10)
--- NOTE | 2017-03-09 15:15 | OP ---
[address] [address] OPERATIVE REPORT PATIENT: STONE VAZQUEZ : 1995 MR#: [id number] ADMIT: 03/09/2017 JOB ID: [id number] DATE OF SURGERY: 03/09/2017 PREOPERATIVE DIAGNOSIS(ES): 1. Chronic pelvic pain. 2. Ovarian cyst. 3. Morbid Obesity POSTOPERATIVE DIAGNOSIS(ES): 1. Chronic pelvic pain. 2. Ovarian cyst. PROCEDURE PERFORMED: Laparoscopic right ovarian cystectomy. SURGEON: Lucian Barrera MD. PRESS TENDER: MD Dr. Channing Metz was necessary for this procedure to help with exposure and retraction. ANESTHESIA: General. ESTIMATED BLOOD LOSS: 5 mL. COMPLICATIONS: None. PATHOLOGY SENT: Right ovarian cyst. FINDINGS AT TIME OF SURGERY: Normal appearing uterus. The left ovary and fallopian tubes were normal appearance. The right fallopian tube was also normal in appearance. However, there was a 2-3 cm paratubal/ovarian cyst attached to the fimbriated end of the fallopian tube and the right ovary. Survey of the remaining abdomen was very limited due to patient's body habitus and adipose tissue internally. She did not tolerate high intra-abdominal pressures or Trendelenburg initially. PROCEDURE: The patient was taken to the operative room, where her general anesthesia was obtained without difficulty. She was placed in a lithotomy position in the white stirrups, prepared and draped in normal sterile fashion. The Vargas catheter was placed and an acorn manipulator was inserted. The umbilicus was injected with 10 mL of 0.25% Marcaine with epinephrine. The umbilicus was grasped with two penetrating towel clips to help expose the base of the umbilicus. A Veress needle was inserted at the base of patient's umbilicus. Initially there were high pressures upon insufflation and so the Veress needle was removed. The second longer Veress needle was then used and inserted. Needle aspirate and water drop test were negative and confirmatory. There were low opening pressures. Pneumoperitoneum was obtained 12 mmHg with CO2 gas. The above noted findings were appreciated. At this point, a left and right lower quadrant port site were marked off, injected with 0.25% Marcaine with epinephrine. Two 5 mm blunt trocars were inserted directly into the patient's peritoneal cavity under direct visualization. The Thunderbeat cautery device was then used to excise the right paraovarian cyst. At the end of procedure, the cyst was ruptured in the cul-de-sac and contained just clear fluid. The cyst was then removed from the left lower quadrant along with the port. The pelvis fluid was then drained. Good hemostasis was assured. All port sites were removed from the patient's peritoneal cavity and the pneumoperitoneum was released. The skin incisions were reapproximated with 4-0 Monocryl in a subcuticular fashion and Dermabond applied. All lap, instrument, and needle counts correct x2 at the end of procedure and patient was taken to the recovery room awake and in good condition. YEIMI
--- NOTE | 2017-03-10 14:33 | PATH ---
SURGICAL PATHOLOGY Attending Physician:Lucian Barrera, CASE STATUS: Signed Out PATIENT NAME: STONE VAZQUEZ PID: [id number] : 1995 DATE COLLECTED:03/09/2017 00:00 SPECIMEN: Ovary, Cyst, Non-Neoplastic CLINICAL HISTORY: PELVIC PAIN, PARA OVARIAN CYST 1). RIGHT OVARIAN CYST FINAL DIAGNOSIS: 1.RIGHT OVARIAN CYST: TISSUE CONSISTENT WITH BENIGN SIMPLE SEROUS CYST. NEGATIVE FOR ATYPIA AND MALIGNANCY. ICD10 N83.2 GROSS DESCRIPTION: The specimen is received in one formalin filled container labeled with the patient's name, sublabeled "right ovarian cyst" and consists of a light cardenas semi-firm portion of tissue which measures 3.0 x 2.6 x 1.0 CM. 2 printing sales representative sections are submitted in one cassette. 03/10/2017 [facility] MICRO DESCRIPTION: See diagnosis. ICD-9 CODES: CPT CODES: 1: 49871 Electronically Signed Out Leopoldo Thomason MD [facility] [address], [place] [address] Technical component performed at [facility], [facility] [address], [place], [address]
== END 2017-03-09 23:59 | disposition home or self-care (01) ==
LOC: SAS 08:53
PROVIDERS: ATTEND Obstetrics & Gynecology
DX: N83.292 Other ovarian cyst, left side (principal); N83.291 Other ovarian cyst, right side; R10.2 Pelvic and perineal pain; G89.29 Other chronic pain; F41.8 Other specified anxiety disorders; E66.01 Morbid (severe) obesity due to excess calories; Z68.43 Body mass index [BMI] 50.0-59.9, adult; Z79.84 Long term (current) use of oral hypoglycemic drugs; Z87.891 Personal history of nicotine dependence
CPT/HCPCS: 58662; J0330; J1100; J2250; J2405; J2710; J2765; J3010; J7120; J7613

== ENCOUNTER 2017-05-13 07:59 | Emergency (ER) | payer OTHER ==
[~2017-05-13] VITALS: Ht 167.6 cm; Wt 155.4 kg
[~2017-05-13 07:59] MED LIST changes: +LEVO1TAB8 PO; -LORazepam 1 mg Tablet PO PRN; -OCP
[2017-05-13 08:13] VITALS: BP 134/92; PULSE 85; RESP 12; O2SAT 98
--- NOTE | 2017-05-13 08:22 | ED.REPORT ---
HPI-Extremity Problem Lower Date of Service May 13, 2017 ED Provider: Melvin Martinez MD Patient is a 22 year old female who presents to the ED with R ankle pain s/p twisting it 4 days ago. The injury occurred when she was walking in her backyard when she stepped on it wrong. Associated symptoms include problems walking and swelling. She denies numbness, weakness, tingling, or any other symptoms. She has injured this ankle previously but never broken it. Patient took [place] at 0500 for pain. Nursing Notes Stated Complaint: RIGHT ANKLE INJURY Chief Complaint: Extremity Trauma Nursing Notes Reviewed: Yes Allergies: Coded Allergies: sumatriptan (Verified Allergy, Unknown, 02/08/17) Scheduled Levonorgestrel/Ethinyl Estradiol (Aviane) 1 Each Tablet 1 TABLET PO DAILY Metformin (Metformin) 500 Mg Tablet 500 MG PO BID Multivitamin (Multi Vitamin Daily) 1 Each Tablet 1 EACH PO DAILY Scheduled PRN Hydrocodone-Acetaminophen 5-325 mg (Hydrocodone-Acetaminophen 5-325 mg) 1 Each Tablet 1 TABLET PO Q4H PRN PRN For Pain Ibuprofen (Ibuprofen) 800 Mg Tablet 800 MG PO TID PRN PRN For Pain Tramadol (Tramadol) 50 Mg Tablet 50 MG PO Q3H PRN PRN For Pain General Time Seen by MD: 08:20 Chief Complaint Ankle injury right Hx Obtained From: Patient Arrived By: Walk-in Onset Occurred: 4 days ago Symptom Duration: Since onset Immunizations: Unknown Past Medical History Past Medical History Prior mental illness, not currently on medication Panic disorder, depression Ovarian cyst PCOS Past Surgical History cystectomy Reports: Tonsillectomy Family History Review, not relevant Smoking History Former Smoker Social History Alcohol Use: "Social" Drug Use: Denies drug use Other Social History: , Local resident Occupation [employer] Ambulatory Status Independent Review of Systems Review of Systems Note: -tingling Musculoskeletal: Reports: Joint pain, Joint swelling Neurologic: Reports: Problem walking, Denies: Numbness, Weakness Complete sys rev & neg: except as marked. Physical Exam Initial Vital Signs Vital Signs (First) Date Time Temp Pulse Resp B/P Pulse Ox O2 Delivery O2 Flow Rate FiO2 05/13/17 08:13 37.2 85 12 134/92 98 Room Air Initial VS: Reviewed, Vital signs abnormal Head / Eyes: Atraumatic, Normocephalic Neck: Full range of motion Respiratory: Breath sounds normal, Clear to auscultation, No respiratory distress Cardiovascular: Regular rate & rhythm, Heart sounds normal, Intact distal pulses Skin: Warm, Dry Neurologic: Alert, Oriented, Nonfocal Psychiatric: Mood/affect normal, Behavior normal, Normal thought content Lower Extremity / Pelvis / MS: No deformity, Neurologic intact, Vascular intact Ankle / Foot: Inspection NL, No deformity, Neurologic intact, Vascular intact Diffuse swelling of R ankle No bony tenderness General/Constitutional: Awake, Alert, No acute distress Interpretation & Diagnostics X-Ray Interpretation Xray Interpretation: IMPRESSION: 1. No displaced fracture or dislocation. If clinical concern persists for occult fracture, recommend a repeat study in 7-10 days or further evaluation with cross-sectional imaging. Dictated by: Tristan Padilla M.D. on 05/13/2017 at 9:27 Approved by: Tristan Padilla M.D. on 05/13/2017 at 9:28 X-Ray Ordered: Ankle right Re-Eval/Medical Decision Med Decision/Clinical Course Right ankle sprain. No evidence of fracture. Patient was placed in an Kee wrap, postop shoe, crutches. Weightbearing as tolerated. Follow-up with primary doctor 1 week if pain persists. TOSHIA. Re-Evaluation/Progress : Time of Eval: 09:57 Re-Evaluation/Progress Note: Discussed imaging results and plan for discharge. Patient understands and agrees with plan. All questions addressed at this time. Counseled Regarding: Diagnosis, Need for follow-up, When/why to return to ED Discharge & Departure Impression: Primary Impression: Ankle sprain Encounter type: initial encounter Involved ligament of ankle: unspecified ligament Laterality: right Qualified Code: S93.401A - Sprain of unspecified ligament of right ankle, initial encounter Disposition: Home Discharge Condition All VS Reviewed: Yes Condition: Stable Patient Instructions: Ankle Sprain (ED) Additional Instructions: Thank you for entrusting us with your care. You do not have a fracture. Ice the injury for 20 minutes at a time, 3 times a day. You may bear weight as tolerated. Take Ibuprofen as needed for pain. Follow up with your primary doctor if the pain persists or gets worse. Return to the emergency department for numbness, weakness, tingling, or any other new or worsening symptoms. Referrals: Eli Bowles (PCP) Scribe Attestation Portions of this note were transcribed by Katt Brewer. I, Dr. Martinez personally performed the history, physical exam and medical decision-making; I reviewed and confirmed the accuracy of the information in the transcribed note. copies to: Eli Bowles Ben M MD May 13, 2017 08:21 KATT BREWER May 13, 2017 08:35
--- NOTE | 2017-05-13 09:30 | DRSVH ---
PROCEDURE: X-RAY RIGHT ANKLE, MINIMUM THREE VIEWS ([id number]) INDICATIONS: trauma TECHNIQUE: 3 views of the ankle were acquired. COMPARISON: [facility], CR, XR ANKLE 3VW RT, 09/14/2015, 9:08. FINDINGS: Bones: No displaced fractures or dislocations. Ankle mortise is normally aligned. No suspicious chinyere ny lesions. Soft tissues: No tibiotalar joint effusion. Achilles tendon appears normal. IMPRESSION: 1. No displaced fracture or dislocation. If clinical concern persists for occult fracture, recommend a repeat study in 7-10 days or further ev aluation with cross-sectional imaging. Dictated by: Tristan Padilla M.D. on 05/13/2017 at 9:27 Approved by: Tristan Padilla M.D. on 05/13/2017 at 9:28
[2017-05-13] MEDS ORDERED: IBUP800T28 PO (09:57)
[2017-05-13 10:32] VITALS: BP 145/100; PULSE 106; RESP 16; O2SAT 97
== END 2017-05-13 10:34 | disposition home or self-care (01) ==
LOC: SED 07:59
DX: S93.491A Sprain of other ligament of right ankle, initial encounter (principal); X50.1XXA Overexertion from prolonged static or awkward postures, initial encounter; Y93.01 Activity, walking, marching and hiking; Y92.096 Garden or yard of other non-institutional residence as the place of occurrence of the external cause; Y99.8 Other external cause status; F32.9 Major depressive disorder, single episode, unspecified; Z79.84 Long term (current) use of oral hypoglycemic drugs; Z87.891 Personal history of nicotine dependence; Z88.8 Allergy status to other drugs, medicaments and biological substances
CPT/HCPCS: 73610; 96372; 99284; J1885